=== PATIENT | male | born 1935 | race Hispanic/Latino ===

== ENCOUNTER → 2018-11-04 | Day surgery (SDC) | payer MEDICARE, OTHER ==
[2018-10-24 13:48] LABS: BASOPHILS % 0.3 % (0.0-1.0); EOSINOPHILS # (AUTO) 0.2 (0.0-0.4); EOSINOPHILS % 2.6 % (0.0-6.0); HEMOGLOBIN 12.6 g/dL (14.0-18.0); LYMPHOCYTES # (AUTO) 1.4 (1.0-3.2); LYMPHOCYTES % 21.1 % (18.0-39.1); MEAN CORPUSCULAR HEMOGLOBIN 32.6 pg (28-32); MEAN CORPUSCULAR HGB CONC 34.1 g/dL (31-35); MEAN CORPUSCULAR VOLUME 95.6 fL (81-99); MONOCYTES # (AUTO) 0.5 (0.2-0.8); MONOCYTES % 7.1 % (4.4-11.3); NEUTROPHILS # (AUTO) 4.5 (2.1-6.9); NEUTROPHILS % 68.6 % (38.7-80.0); PLATELET COUNT 173 x10e3/uL (140-360); RED BLOOD COUNT 3.87 x10e6/uL (4.3-5.7); RED CELL DISTRIBUTION WIDTH 12.7 % (11.7-14.4)
[~2018-11-04] MED LIST: ARICEPT5 MG PO; ATENOLOL50 MG PO; ATORVASTATIN CA10 MG PO; CALAN SR180 MG PO; DONEPEZIL PO; FENTANYL CITRATE/PF 100MCG/2 ML INJ ONE; GLIMEPIRIDE2 MG PO; GLUCAGON FOR INJ 1 MG VIAL ONE; HYOSCYAMINE SULFATE 0.5 MG/ML INJ ONE; LEVOCETIRIZINE D5 MG PEG; LEVOTHYROXINE50 MCG PO; LIDOCAINE HCL 2% LOCAL INJ 5 ML SDV VIAL INJ ONE; LOSARTAN POTAS100 MG PO; MEMANTINE PO; METFORMIN HCL500 MG PO; METOCLOPRAMIDE HCL 10 MG/2ML VIAL ONE; OMEPRAZOLE40 MG PO; PROPOFOL IV EMULSION 10 MG/ML 50 ML VIAL ONE; VERAPAMIL ER120 MG; VESICARE5 MG PO
[2018-11-04 14:45] VITALS: BP 142/88
--- NOTE | 2018-11-04 20:50 | Operative Report ---
DATE OF PROCEDURE: 11/04/2018 SURGEON: Clint Madrid MD PROCEDURES: 1. Esophagogastroduodenoscopy with biopsy. 2. Colonoscopy with polypectomy. INDICATIONS FOR EGD: Acid reflux. INDICATIONS FOR COLONOSCOPY: Colorectal cancer screening. MEDICATIONS: The patient was done under MAC, please see anesthesiologist's note. PROCEDURE IN DETAIL: EGD: With the patient in left lateral decubitus position, a flexible fiberoptic Olympus gastroscope was introduced into the esophagus under direct visualization without any difficulty. There was some patchy erythema noted in distal esophagus. The scope was then advanced with ease into the stomach and mucosa overlying the antrum revealed some patchy intense erythema and moderate edema and biopsies were obtained, sent to stain for H pylori. There was a submucosal nodule also noted in the stomach and that was biopsied. Mucosa overlying the body of the stomach was somewhat atrophic and biopsies were obtained to rule out atrophic gastritis. Pylorus was intubated with ease and the scope was advanced all the way to the second portion of the duodenum. The scope was then withdrawn slowly and mucosa overlying the proximal second portion and duodenal bulb appeared to be within normal limits. The scope was then withdrawn back into the stomach and retroflexed and mucosa overlying the fundus and the cardia appeared to be within normal limits. The scope was then straightened out and was subsequently withdrawn. The patient tolerated the procedure well. IMPRESSION: 1. Distal esophagitis, mild. 2. Rule out atrophic gastritis, body, biopsied. 3. Submucosal nodule, antrum, biopsied. PLAN: Follow up histology. Increase omeprazole to 40 mg one p.o. before meals b.i.d. Colonoscopy: The patient was then turned around after adequate lubrication of the anal canal. Flexible fiberoptic Olympus colonoscope was inserted into the rectum with ease and advanced all the way to the cecum. The cecum and the proximal ascending colon were suboptimally prepped, but no obvious obstructing or constricting lesions were noted. Two polyps were snared, three polyps were hot biopsied in the transverse colon, and one polyp was hot biopsied in the descending colon. The sigmoid and rectum grossly appeared to be within normal limits. The scope was then retroflexed into the distal rectum, small internal hemorrhoids were noted, none of which was actively bleeding. The scope was then straightened out and it was subsequently withdrawn. The patient tolerated the procedure well. IMPRESSION: 1. Suboptimal prep. 2. Transverse colon polyps x5, two snared and three hot biopsied. 3. Descending colon polyp, hot biopsied. 4. Internal hemorrhoids, none actively bleeding. PLAN: Follow up histology. Initiate high-fiber, low-fat diet. Initiate high-fiber supplement. Timing of followup colonoscopy pending pathology report. Clint Madrid MD [facility] [place] /[id number] cc: Arcelia Gann MD
--- OUTSIDE RECORDS SUMMARY | 2018-11-06 14:47 | XMS REPORT | Summary of Care ---
Author Author [facility] Outpatient Imaging [facility] Outpatient Imaging [facility] Address Unknown Phone Unavailable Encounter HQ Encntr_alias(FIN) [id number] Date(s): 11/28/17 - 11/28/17 [facility] Outpatient Imaging [facility] [address] [facility] [address] [place], [place] [address]- [phone] Discharge Disposition: Home or Self Care Attending Physician: González Pinto MD Vital Signs No data available for this section Problem List Condition Effective Dates Status Health Status Informant Cancer of Resolved prostate(Confirmed) Diabetes(Confirmed) Resolved Hyperlipidemia(Confi Resolved rmed) Hypertension(Confirm Resolved ed) Allergies, Adverse Reactions, Alerts Substance Reaction Severity Status NKDA Active Medications No data available for this section Results No data available for this section Immunizations Given and Recorded Vaccine Date Status Refusal Reason pneumococcal 23-valent vaccine 03/18/07 Given Not Given Vaccine Date Status Refusal Reason pneumococcal 23-valent vaccine1 10/23/13 Not Given Parent Or Guardian Refuses 1Result Comment: as per patient and family patient recieved pneumo vaccine last year Procedures No data available for this section Social History Social History Type Response Smoking Status Never smoker; Exposure to Tobacco Smoke None; Cigarette Smoking Last 365 Days No; Reg Smoking Cessation Counseling No entered on: 10/23/13 Assessment and Plan No data available for this section
--- OUTSIDE RECORDS SUMMARY | 2018-11-06 14:47 | XMS REPORT | Summary of Care ---
Author Author [facility] Cardiology [facility] Organization [facility] Address Unknown Phone Unavailable Encounter BETHANY Crawford(CORIE) [id number] Date(s): 01/20/18 - 01/20/18 [facility] [address] [facility] [address] [place] [address] [phone] Discharge Disposition: Home or Self Care Attending Physician: Maximiliano Cisneros MD Vital Signs Most recent to 1 oldest [Reference Range]: Height 165.1 cm (01/20/18 12:09 PM) Blood Pressure 120/72 mmHg [90-140/60-90 mmHg] (01/20/18 12:09 PM) Peripheral Pulse 81 bpm Rate [60-100 bpm] (01/20/18 12:09 PM) Weight 77.898 kg (01/20/18 12:09 PM) Body Mass Index 28.58 m2 (01/20/18 12:09 PM) Problem List Condition Effective Dates Status Health Status Informant Cancer of Resolved prostate(Confirmed) Diabetes(Confirmed) Resolved Hyperlipidemia(Confi Resolved rmed) Hypertension(Confirm Resolved ed) Allergies, Adverse Reactions, Alerts Substance Reaction Severity Status NKDA Active Medications aspirin 81 mg tablet, enteric coated 81 mg=1 tab, PO, Daily, # 90 tab, 3 Refill(s) Start Date: 01/20/18 Status: Ordered levocetirizine 5 mg oral tablet 5 mg=1 tab, PO, Bedtime, PRN as needed for allergy symptoms, # 30 tab, 0 Refill( s) Start Date: 01/20/18 Stop Date: 02/19/18 Status: Ordered VESIcare 5 mg oral tablet 5 mg=1 tab, PO, Daily, # 30 tab, 0 Refill(s) Start Date: 01/20/18 Status: Ordered Results No data available for this section [...] Reg Smoking Cessation Counseling No entered on: 01/20/18 Assessment and Plan No data available for this section
--- OUTSIDE RECORDS SUMMARY | 2018-11-06 14:47 | XMS REPORT | Continuity of Care Document ---
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 [facility] DVT Active 10/23/2013 [facility] LEG PAIN Active 10/23/2013 [facility] Diabetes Resolved Problem 10/26/2013 [facility] Cancer of prostate Resolved Problem 08/09/2018 [facility] Diabetes Resolved Problem 08/09/2018 [facility] Hyperlipidemia Resolved Problem 08/09/2018 [facility] Hypertension Resolved Problem 08/09/2018 [facility] AC DVT/EMB PROX LOW EXT Active [facility] Medications Medication Details Route Status Patient Instructions Ordering Provider Order Date Source levocetirizine 5 mg oral tablet 5 mg=1 tab, PO, Bedtime, PRN as needed for allergy symptoms, # 30 tab, 0 Refill(s) Active 01/20/2018 [facility] Aspirin 81 MG Enteric Coated Tablet 81 mg=1 tab, PO, Daily, # 90 tab, 3 Refill(s) Active 01/20/2018 [facility] solifenacin succinate 5 MG Oral Tablet [VESICARE] 5 mg=1 tab, PO, Daily, # 30 tab, 0 Refill(s) Active 01/20/2018 [facility] rivaroxaban 15 MG Oral Tablet [Xarelto] 15 mg=1 tab, PO, BID, # 42 tab, 0 Refill(s) Active 10/24/2013 [facility] Solifenacin Route: PO, Drug form: TAB, Daily, Dosing Weight 75, kg, Start date: 10/24/13 9:00:00, Duration: 30 day, Stop date: 11/22/13 9:00:00 No Longer Active 10/24/2013 [facility] Omeprazole 20 mg, Route: PO, Drug form: DRC, Daily, Dosing Weight 75, kg, Start date: 10/24/13 9:00:00, Duration: 30 day, Stop date: 11/22/13 9:00:00 No Longer Active 10/24/2013 [facility] glimepiride 1 mg, 1 tab, Route: PO, Drug form: TAB, Daily, Dosing Weight 75, kg, Start date: 10/24/13 9:00:00, Duration: 30 day, Stop date: 11/22/13 9:00:00Notes: (Same as: Amaryl) Inactive 10/24/2013 [facility] Losartan 100 mg, 2 tab, Route: PO, Drug form: TAB, Daily, Dosing Weight 75, kg, Start date: 10/24/13 9:00:00, Duration: 30 day, Stop date: 11/22/13 9:00:00Notes: (Same as: Cozaar) Inactive 10/24/2013 [facility] Protonix 40 mg, Route: PO, Daily, Dosing Weight 75, kg, Start date: 10/24/13 9:00:00, Duration: 30 day, Stop date: 11/22/13 9:00:00 No Longer Active 10/24/2013 [facility] Lovenox 80 mg, 0.8 mL, Route: SUB-Q, Drug form: INJ, [id number], Start date: 10/23/13 22:00:00, Duration: 30 day, Stop date: 11/22/13 10:00:00Notes: Nurse to ensure documentation of patient education per antic oagulation policy. (Same as: Lovenox) No Longer Active 10/24/2013 [facility] atorvastatin 10 mg, 1 tab, Route: PO, Drug form: TAB, Bedtime, Dosing Weight 75, kg, Start date: 10/23/13 21:00:00, Duration: 30 day, Stop date: 11/21/13 21:00:00Notes: (Same As: Lipitor) No Longer Active 10/24/2013 [facility] Xarelto 15 mg, Route: PO, Q12H, Dosing Weight 75, kg, Start date: 10/23/13 21:00:00, Duration: 30 day, Stop date: 11/22/13 9:00:00 Inactive 10/24/2013 [facility] Detrol LA 4 mg, 1 cap, Route: PO, Drug form: CAP, Bedtime, Start date: 10/23/13 21:00:00, Duration: 30 day, Stop date: 11/21/13 21:00:00Notes: Do Not Crush. (Same As: Detrol LA) No Longer Active 10/24/2013 [facility] Lovenox 80 mg, 0.8 mL, Route: SUB-Q, Drug form: INJ, [id number], Dosing Weight 75, kg, Start date: 10/23/13 17:00:00, Duration: 30 day, Stop date: 11/22/13 5:00:00Notes: Nurse to ensure documentation of patient education per anticoagulation policy. (Same as: Lovenox) Inactive 10/23/2013 [facility] Verapamil 180 mg, 1 tab, Route: PO, Drug form: ERTAB, QPM, Dosing Weight 75, kg, Start date: 10/23/13 17:00:00, Duration: 30 day, Stop date: 11/21/13 17:00:00Notes: Do not crush or chew. (Same As: Calan SR, Isoptin SR) "Avoid grapefruit and grapefruit juice" No Longer Active 10/23/2013 [facility] Metformin 100 mg, Route: PO, Drug form: TAB, BID, Dosing Weight 75, kg, Start date: 10/23/13 17:00:00, Duration: 30 day, Stop date: 11/22/13 9:00:00 Inactive 10/23/2013 [facility] Zinacef 1.5 gm, Route: IVPB, PRE OP, Dosing Weight 75, kg, Start date: 10/23/13 17:00:00, Duration: 1 day, Stop date: 10/24/13 16:59:00Notes: (Same As: Kefurox, Zinacef) Inactive 10/23/2013 [facility] Protonix 40 mg, 1 tab, Route: PO, Drug form: ECTAB, Before Dinner, Start date: 10/23/13 16:30:00, Duration: 30 day, Stop date: 11/21/13 16:30:00Notes: Tablet should not be chewed or crushed. (Same as: Protonix) No Longer Active 10/23/2013 [facility] Phenergan 25 mg, 1 mL, Route: IM, Drug form: INJ, Q4H, Dosing Weight 75, kg, PRN as needed for nausea/vomiting, Start date: 10/23/13 15:04:00, Duration: 30 day, Stop date: 11/22/13 15:03:00Notes: Do not give IV push. (Same as: Phenergan) No Longer Active 10/23/2013 [facility] Zofran 4 mg, 2 mL, Route: IV, Drug form: INJ, Q4H, Dosing Weight 75, kg, PRN as needed for nausea/vomiting, Start date: 10/23/13 15:04:00, Duration: 30 day, Stop date: 11/22/13 15:03:00Notes: (Same as: Zofran) No Longer Active 10/23/2013 [facility] Glucagon 1 mg, Route: IM, Drug form: PDR/INJ, PRN, Dosing Weight 75, kg, PRN Blood Glucose Results, Start date: 10/23/13 15:03:00, Duration: 30 day, Stop date: 11/22/13 15:02:00 No Longer Active 10/23/2013 [facility] Dextrose 50% Syringe 25 gm, 50 mL, Route: IVP, Drug Form: INJ, Dosing Weight 75, kg, PRN, PRN Blood Glucose Results, Start date: 10/23/13 15:03:00, Duration: 30 day, Stop date: 11/22/13 15:02:00 No Longer Active 10/23/2013 [facility] Hydralazine 10 mg, 0.5 mL, Route: IV, Drug form: INJ, Q4H, Dosing Weight 75, kg, PRN Elevated BP, Start date: 10/23/13 15:03:00, Duration: 30 day, Stop date: 11/22/13 15:02:00, SBP > 165Notes: (Same as: Apresoline) Push over 5 minutes No Longer Active 10/23/2013 [facility] Insulin, Aspart, Human 5 unit, 0.05 mL, Route: SUB-Q, Drug form: SOLN, TID-Before Meals, Dosing Weight 75, kg, PRN Blood Glucose Results, Start date: 10/23/13 15:03:00, Duration: 30 day, Stop date: 11/22/13 15:02:00Notes: Roll in palms of hands gently; Do not shake vigorously. (Same as: NovoLOG) "single patient use only" Stable for 28 days at room temperature. Expires in days from Date No Longer Active 10/23/2013 [facility] Lovenox 70 mg, 0.7 mL, Route: SUB-Q, Drug form: INJ, [id number], Dosing Weight 68.182, kg, Start date: 10/23/13 15:00:00, Duration: 30 day, Stop date: 11/22/13 3:00:00Notes: Nurse to ensure documentation of patient education per anticoagulation policy. (Same as: Lovenox) Inactive 10/23/2013 [facility] solifenacin succinate 5 MG Oral Tablet [VESICARE] See Instructions, 1 tab, 0 Refill(s)Special Instructions: 1 tab Active 10/23/2013 [facility] Verapamil 180 mg, PO, Daily, 0 Refill(s) Active 10/23/2013 [facility] atorvastatin 10 mg oral tablet 10 mg=1 tab, PO, Bedtime, # 30 tab, 0 Refill(s) Active 10/23/2013 [facility] Metformin 100 mg, PO, BID, 0 Refill(s) Active 10/23/2013 [facility] Lovenox 70 mg, 0.7 mL, Route: SUB-Q, Drug form: INJ, ONCE, Dosing Weight 68.182, kg, Priority: STAT, Start date: 10/23/13 10:16:00, Stop date: 10/23/13 10:16:00Notes: Nurse to ensure documentation of patient education per anticoagulation policy. (Same as: Lovenox) Inactive 10/23/2013 [facility] Saline Flush 0.9% 5 mL, Route: IVP, Drug Form: INJ, Dosing Weight 68.182, kg, Q8H, PRN Line Flush, Start date: 10/23/13 9:09:00, Duration: 30 day, Stop date: 11/22/13 9:08:00, Administer at least once every 8 hoursSpe cial Instructions: Administer at least once every 8 hoursNotes: (Same as: BD Posiflush) No Longer Active 10/23/2013 [facility] losartan 100 mg oral tablet 100 mg=1 tab, PO, Daily, # 30 tab, 0 Refill(s) Active 10/22/2013 [facility] glimepiride 1 mg oral tablet 1 mg=1 tab, PO, Daily, # 30 tab, 0 Refill(s) Active 10/22/2013 [facility] omeprazole 20 mg oral delayed release capsule 20 mg=1 cap, PO, Daily, # 30 cap, 0 Refill(s) Active 10/22/2013 [facility] Allergies, Adverse Reactions, Alerts Substance Category Reaction Severity Reaction type Status Date Reported Comments Source Immunizations Immunization Date Given Site Status Last Updated Comments Source pneumococcal 23-valent vaccine<sup>1</sup> 10/24/2013 Not Given [facility] pneumococcal 23-valent vaccine 03/18/2007 Right deltoid completed [place] [facility] Results Order Name Results Value Reference Range Date Interpretation Comments Source Spine cervical wo contrast MRI Spine cervical wo contrast MRI Clinical Indication: M54.12 - Radiculopathy, cervical region - M54.12 - Radiculopathy, cervical region, Pain neck, both shoulders and arms, neck pain radiating to both shoulders and arms Comparison: None TECHNIQUE: Multiplanar T1, T2, and STIR weighted MRI of the cervical spine is performed. FINDINGS: ALIGNMENT AND GENERAL ASSESSMENT: There is normal alignment of the cervical spine. No aggressive bone marrow abnormality is present. The prevertebral soft tissues, atlanto-dental interspace and craniocervical junction are within normal limits. The facet joint alignment, spinolaminar and spinous process alignments are unremarkable. The posterior paraspinal soft tissues are unremarkable. The visualized brainstem region is unremarkable. The cervical spinal cord is normal in size and signal. DISC SPACES: C2-C3: The disc is normal. There is no significant central canal or foraminal stenosis. The facet joints are unremarkable. C3-C4: The disc is normal. Disc osteophyte complex results in mild bilateral neural foraminal narrowing with mild central canal effacement. The facet joints are unremarkable. C4-C5: The disc is normal. There is no significant central canal or foraminal stenosis. The facet joints are unremarkable. C5-C6: Disc desiccation with severe height loss and a small posterior circumferential disc bulge. Mild to moderate right and moderate left neural foraminal narrowing with mild to moderate central canal effacement. The facet joints are unremarkable. C6-C7: Disc desiccation with mild height loss and a small posterior circumferential disc bulge. Disc osteophyte complex results in mild left neural foraminal narrowing. The facet joints are unremarkable. C7-T1: The disc is normal. There is no significant central canal or foraminal stenosis. The facet joints are unremarkable. OTHER: The remaining visualized soft tissue and osseous structures are grossly unremarkable. IMPRESSION: -- Limited exam secondary to patient motion artifact on multiple sequences. Multilevel degenerative changes result most prominently in: 1. C5/C6 mild to moderate right/moderate left neural foraminal narrowing, mild to moderate central canal effacement 2. Mild neural foraminal narrowing at C3/C4 and C6/C7 SL: DARON 05/26/2018 - - Read by: Lexi Macdonald MD Dictated Date/time: 05/27/18 16:06 Electronically Signed by: Lexi Macdonald MD 05/27/18 16:11 FINAL REPORT [facility] Brain wo contrast MRI Brain wo contrast MRI Patient Name: GAMAL PHILLIPS : 1935; Age: 82 years y/o Male MR: [id number] Study: Brain wo contrast MRI 11/28/2017 3:51 PM CDT INDICATIONS: G30.9 - Alzheimer's disease - G30.9 - Alzheimer's disease Comparison: 02/05/2016 TECHNIQUE: Multiplanar MRI of the brain is performed on a 1.5 Snehal magnet. Contrast: None. FINDINGS: BRAIN PARENCHYMA: Age appropriate involutionary changes with mild punctate small vessel ischemic changes.2. The brain parenchyma otherwise has normal signal with normal elliott-white junction, sulci, and gyri. There is no mass effect or midline shift. There is no extra-axial fluid collection or intraparenchymal hemorrhage. The corpus callosum appears normal. There is no diffusion weighted imaging or ADC map abnormality to suggest acute/subacute ischemia. There is no magnetic susceptibility to suggest recent or remote intracranial hemorrhage. CEREBELLOPONTINE REGIONS AND SKULL BASE: The cerebellopontine angles appear unremarkable. The skull base, craniocervical junction, and brainstem are normal. The optic chiasm is normal. The sellar and pineal regions are unremarkable. The inferior tip of the cerebellum is above the foramen magnum (line between the opisthion to basion) which is considered normal.. VENTRICLES: The lateral ventricles, third and fourth ventricles appear unremarkable. The basilar cisterns are normal. VESSELS: The venous sinuses are grossly unremarkable. The expected intracranial flow voids are present. ORBITS, VISUALIZED PARANASAL SINUSES AND MASTOIDS: 14x11 polyp or retention cyst left maxillary sinus The visualized orbits and paranasal sinuses are otherwise unremarkable. Slight opacification of the right mastoid air cells suggesting mastoiditis in the appropriate clinical setting. IMPRESSION: 1. Age appropriate involutionary changes with mild punctate small vessel ischemic changes. 2. 14x11 polyp or retention cyst left maxillary sinus, similar. SL: AMELIE- 11/28/2017 - - Read by: Johnny Mansfield DO Dictated Date/time: 11/28/17 17:51 Electronically Signed by: Johnny Mansfield DO 11/28/17 18:51 [facility] Chest 2 views DX Chest 2 views DX PA and lateral chest: The aortic arch is calcified. The cardiomediastinal silhouette, pulmonary vasculature and sindhu are otherwise within normal limits. Mild bilateral pleural thickening is noted. The lungs and pleural spaces are clear. There are no acute osseous abnormalities. There is no significant change compared to 07/31/2008. IMPRESSION: No acute radiographic abnormalities in the chest. DLAWRENCE- 09/28/2016 - - Read by: Rafael Avilez MD Dictated Date/time: 09/28/16 12:51 Electronically Signed by: Rafael Avilez MD 09/28/16 12:52 FINAL REPORT [facility] Brain wo contrast MRI Brain wo contrast MRI MRI BRAIN WITHOUT CONTRAST HISTORY: Unspecified abnormalities of gait and mobility, cerebral atherosclerosis, senile degeneration of brain; forgetfulness COMPARISON: None available. TECHNIQUE: Multiecho multiplanar images of the brain were done without and with contrast injection. FINDINGS: There is no acute infarct or restricted diffusion. Moderate diffuse cerebral atrophy and mild chronic small vessel ischemic change. The ventricles, sulci, and cisterns are normal. There is no other signal abnormality in the elliott or the white matter. No mass, hemorrhage, or extra-axial fluid collection is identified. The pituitary gland is normal in size. The cerebellar tonsils are normal in position. Normal T2 flow voids are present. Small mucous retention cyst in the left maxillary sinus. IMPRESSION: 1. No acute ischemia or intracranial hemorrhage. 2. Moderate diffuse cerebral atrophy and mild chronic small vessel ischemic change. SL: BREE 02/05/2016 - - Read by: Esau Lerma MD Dictated Date/time: 02/05/16 17:23 Electronically Signed by: Esau Lerma MD 02/05/16 17:31 FINAL REPORT [facility] Brain wo contrast MRA Brain wo contrast MRA MRA BRAIN HISTORY: I67.2 - Cerebral atherosclerosis, R26.9 - Unspecified abnormalities of gait and mobility; COMPARISON: MRI brain dated 02/05/2016 TECHNIQUE: Magnetic resonance angiography time of flight of the [place] was performed without contrast. 3D reconstructed images were created. The petrous, cavernous, and supraclinoid portions of the internal carotid arteries are normal in contour and caliber. The anterior, middle, and posterior cerebral arteries are normal in shape. The basilar artery is intact. There is no stenosis or branch occlusion. No aneurysm is identified. IMPRESSION: Normal [place]. No intracranial aneurysm or branch occlusion. SL: BREE 02/05/2016 - - Read by: Esau Lerma MD Dictated Date/time: 02/05/16 17:31 Electronically Signed by: Esau Lerma MD 02/05/16 17:33 FINAL REPORT [facility] CHEM PANEL Phosphorus 3.4 mg/dL 2.5 - 4.5 10/24/2013 [facility] CHEM PANEL Magnesium Lvl 1.3 mg/dL 1.8 - 2.4 10/24/2013 [facility] CHEM PANEL eGFR 86 mL/min/1.73m2 10/24/2013 1Result Comment: The eGFR is calculated using the CKD-EPI formula. In most young, healthy individuals the eGFR will be >90 mL/min/1.73m2. The eGFR declines with age. An eGFR of 60-89 may be normal in some populations, particularly the elderly, for whom the CKD-EPI formula has not been extensively validated. Use of the eGFR is not recommended in the following populations: Individuals with unstable creatinine concentrations, including patients and those with serious co-morbid conditions. Patients with extremes in muscle mass or diet. The data above are obtained from the National Kidney Disease Education Program (NKDEP) which additionally recommends that when the eGFR is used in patients with extremes of body mass index for purposes of drug dosing, the eGFR should be multiplied by the estimated BMI. [facility] CHEM PANEL BUN 15 mg/dL 7 - 22 10/24/2013 [facility] CHEM PANEL Creatinine Lvl 0.8 mg/dL 0.5 - 1.4 10/24/2013 [facility] CHEM PANEL Potassium Lvl 3.8 meq/L 3.5 - 5.1 10/24/2013 [facility] CHEM PANEL CO2 25 meq/L 24 - 32 10/24/2013 [facility] CHEM PANEL Chloride Lvl 102 meq/L 95 - 109 10/24/2013 [facility] CHEM PANEL AGAP 14.8 meq/L 10.0 - 20.0 10/24/2013 [facility] CHEM PANEL Calcium Lvl 9.1 mg/dL 8.5 - 10.5 10/24/2013 [facility] CHEM PANEL Sodium Lvl 138 meq/L 135 - 145 10/24/2013 [facility] CHEM PANEL Glucose Lvl 111 mg/dL 70 - 99 10/24/2013 3Interpretive Data: Adult reference range values reflect the clinical guidelines of the [place] [employer]. [facility] HEMATOLOGY WBC 5.9 K/CMM 3.7 - 10.4 10/24/2013 [facility] HEMATOLOGY RBC 3.42 M/CMM 4.70 - 6.10 10/24/2013 [facility] Hgb 10.4 g/dL 14.0 - 18.0 10/24/2013 [facility] Hct 31.3 % 42.0 - 54.0 10/24/2013 [facility] MCH 30.4 pg 27.0 - 31.0 10/24/2013 [facility] MCHC 33.2 g/dL 32.0 - 36.0 10/24/2013 [facility] RDW 13.6 % 11.5 - 14.5 10/24/2013 [facility] MCV 91.4 fL 80.0 - 94.0 10/24/2013 [facility] Platelet 164 K/CMM 133 - 450 10/24/2013 [facility] MPV 7.9 fL 7.4 - 10.4 10/24/2013 [facility] Basophils 0.4 % 0.0 - 1.0 10/24/2013 [facility] Segs-Bands # 4.4 K/CMM 1.5 - 8.1 10/24/2013 [facility] HEMATOLOGY Lymphocytes # 0.9 K/CMM 1.0 - 5.5 10/24/2013 [facility] HEMATOLOGY Monocytes 5.6 % 2.0 - 12.0 10/24/2013 [facility] HEMATOLOGY Eosinophils 2.7 % 0.0 - 4.0 10/24/2013 [facility] HEMATOLOGY Segs 75.3 % 45.0 - 75.0 10/24/2013 [facility] HEMATOLOGY Lymphocytes 16.0 % 20.0 - 40.0 10/24/2013 [facility] HEMATOLOGY Monocytes # 0.3 K/CMM 0.0 - 0.8 10/24/2013 [facility] HEMATOLOGY Eosinophils # 0.2 K/CMM 0.0 - 0.5 10/24/2013 [facility] HEMATOLOGY Basophils # 0.0 K/CMM 0.0 - 0.2 10/24/2013 [facility] LIPIDS LDL (Calculated) 78 mg/dL <=99 mg/dL 10/24/2013 [facility] LIPIDS VLDL 18 10/24/2013 [facility] LIPIDS HDL 56 mg/dL >=61 mg/dL 10/24/2013 [facility] LIPIDS CHD Risk 2.71 4.00 - 7.30 10/24/2013 [facility] LIPIDS Trig 89 mg/dL <=149 mg/dL 10/24/2013 [facility] LIPIDS Chol 152 mg/dL <=199 mg/dL 10/24/2013 [facility] SPECIAL CHEMISTRY Hgb A1C 6.0 % <=5.6 % 10/24/2013 [facility] THYROID PANEL T4 Free 0.97 ng/dL 0.76 - 1.46 10/24/2013 [facility] THYROID PANEL TSH 4.990 uIU/mL 0.360 - 3.740 10/24/2013 [facility] BLOOD BANK RESULTS Antibody Scrn Negative (10/23/13 5:00 PM) 10/23/2013 [facility] BLOOD BANK RESULTS ABO/Rh B POS 10/23/2013 [facility] CARDIAC ENZYMES CK MB Index null 0.0 - 2.5 10/23/2013 [facility] CARDIAC ENZYMES BNP 99 pg/mL <=100 pg/mL 10/23/2013 5Interpretive Data: Elevated results are in line with increasing severity of congestive heart failure. Minor elevations between 100 and 300 may be seen with Myocardial Ischemia, Sodium retaining drugs, and compensated/treated heart failure. [facility] CARDIAC ENZYMES Troponin-I null 0.00 - 0.40 10/23/2013 [facility] CARDIAC ENZYMES Total CK 59 unit/L 12 - 191 10/23/2013 [facility] CARDIAC ENZYMES CK MB null 0.5 - 3.6 10/23/2013 [facility] CHEM PANEL Lipase Lvl 161 unit/L 73 - 393 10/23/2013 [facility] CHEM PANEL eGFR 86 mL/min/1.73m2 10/23/2013 2Result Comment: The eGFR is calculated using the CKD-EPI formula. In most young, healthy individuals the eGFR will be >90 mL/min/1.73m2. The eGFR declines with age. An eGFR of 60-89 may be normal in some populations, particularly the elderly, for whom the CKD-EPI formula has not been extensively validated. Use of the eGFR is not recommended in the following populations: Individuals with unstable creatinine concentrations, including patients and those with serious co-morbid conditions. Patients with extremes in muscle mass or diet. The data above are obtained from the National Kidney Disease Education Program (NKDEP) which additionally recommends that when the eGFR is used in patients with extremes of body mass index for purposes of drug dosing, the eGFR should be multiplied by the estimated BMI. [facility] CHEM PANEL A/G Ratio 0.8 0.7 - 1.6 10/23/2013 [facility] CHEM PANEL B/C Ratio 20 6 - 25 10/23/2013 [facility] CHEM PANEL Globulin 3.8 g/dL 2.0 - 4.0 10/23/2013 [facility] CHEM PANEL Potassium Lvl 4.2 meq/L 3.5 - 5.1 10/23/2013 [facility] CHEM PANEL Sodium Lvl 141 meq/L 135 - 145 10/23/2013 [facility] CHEM PANEL Chloride Lvl 107 meq/L 95 - 109 10/23/2013 [facility] CHEM PANEL Bili Total 0.4 mg/dL 0.2 - 1.3 10/23/2013 [facility] CHEM PANEL AGAP 9.2 meq/L 10.0 - 20.0 10/23/2013 [facility] CHEM PANEL AST 12 unit/L 0 - 37 10/23/2013 [facility] CHEM PANEL Alk Phos 96 unit/L 39 - 136 10/23/2013 [facility] CHEM PANEL ALT 14 unit/L 0 - 65 10/23/2013 [facility] CHEM PANEL Albumin Lvl 3.1 g/dL 3.5 - 5.0 10/23/2013 [facility] CHEM PANEL Total Protein 6.9 g/dL 6.4 - 8.4 10/23/2013 [facility] CHEM PANEL Calcium Lvl 9.4 mg/dL 8.5 - 10.5 10/23/2013 [facility] CHEM PANEL CO2 29 meq/L 24 - 32 10/23/2013 [facility] CHEM PANEL Creatinine Lvl 0.8 mg/dL 0.5 - 1.4 10/23/2013 [facility] CHEM PANEL Glucose Lvl 114 mg/dL 70 - 99 10/23/2013 4Interpretive Data: Adult reference range values reflect the clinical guidelines of the [place] [employer]. [facility] CHEM PANEL BUN 16 mg/dL 7 - 22 10/23/2013 [facility] HEMATOLOGY Segs-Bands # 5.0 K/CMM 1.5 - 8.1 10/23/2013 [facility] HEMATOLOGY Segs 77.7 % 45.0 - 75.0 10/23/2013 [facility] Lymphocytes 14.0 % 20.0 - 40.0 10/23/2013 [facility] Monocytes 6.4 % 2.0 - 12.0 10/23/2013 [facility] HEMATOLOGY Basophils 0.4 % 0.0 - 1.0 10/23/2013 [facility] Eosinophils 1.5 % 0.0 - 4.0 10/23/2013 [facility] Basophils # 0.0 K/CMM 0.0 - 0.2 10/23/2013 [facility] HEMATOLOGY Eosinophils # 0.1 K/CMM 0.0 - 0.5 10/23/2013 [facility] Monocytes # 0.4 K/CMM 0.0 - 0.8 10/23/2013 [facility] Lymphocytes # 0.9 K/CMM 1.0 - 5.5 10/23/2013 [facility] INR 1.08 0.85 - 1.17 10/23/2013 6Interpretive Data: RECOMMENDED RANGES FOR PROTIME INR: 2.0-3.0 for most medical and surgical thromboembolic states. 2.5-3.5 for artificial heart valves and recurrent embolism. INR SHOULD BE USED ONLY FOR PATIENTS ON STABLE ANTICOAGULANT THERAPY. [facility] PT 13.9 s 12.0 - 14.7 10/23/2013 [facility] PTT 31.9 s 22.9 - 35.8 10/23/2013 7Interpretive Data: Heparin Therapeutic Range: 57 - 92 Seconds [facility] HEMATOLOGY MPV 7.2 fL 7.4 - 10.4 10/23/2013 [facility] HEMATOLOGY Platelet 175 K/CMM 133 - 450 10/23/2013 [facility] HEMATOLOGY WBC 6.5 K/CMM 3.7 - 10.4 10/23/2013 [facility] HEMATOLOGY MCH 31.1 pg 27.0 - 31.0 10/23/2013 [facility] HEMATOLOGY RDW 13.5 % 11.5 - 14.5 10/23/2013 [facility] HEMATOLOGY MCHC 33.8 g/dL 32.0 - 36.0 10/23/2013 [facility] HEMATOLOGY MCV 92.0 fL 80.0 - 94.0 10/23/2013 [facility] HEMATOLOGY Hct 33.4 % 42.0 - 54.0 10/23/2013 [facility] HEMATOLOGY RBC 3.63 M/CMM 4.70 - 6.10 10/23/2013 [facility] HEMATOLOGY Hgb 11.3 g/dL 14.0 - 18.0 10/23/2013 [facility] Vital Signs Vital Sign Value Date Comments Source Weight 77.898 01/20/[facility] Heart Rate 81 01/20/2018 [facility] Systolic (mm Hg) 120 01/20/2018 [facility] Diastolic (mm Hg) 72 01/20/2018 [facility] Height 165.1 cm 01/20/2018 [facility] BMI Calculated 28.58 01/20/2018 [facility] Temperature Oral (F) 98.2 F 10/24/2013 [facility] Respitory Rate 18 10/24/2013 [facility] Heart Rate 64 10/24/2013 [facility] Systolic (mm Hg) 132 10/24/2013 [facility] Diastolic (mm Hg) 76 10/24/2013 [facility] Temperature Oral (F) 98 F 10/24/2013 [facility] Heart Rate 59 10/24/2013 [facility] Diastolic (mm Hg) 76 10/24/2013 [facility] Systolic (mm Hg) 132 10/24/2013 [facility] Respitory Rate 18 10/24/2013 [facility] Temperature Oral (F) 97.6 F 10/24/2013 [facility] Systolic (mm Hg) 131 10/24/2013 [facility] Respitory Rate 18 10/24/2013 [facility] Heart Rate 66 10/24/2013 [facility] Diastolic (mm Hg) 79 10/24/2013 [facility] Weight 75 10/23/2013 [facility] BMI Calculated 32.29 10/23/2013 [facility] Height 152.4 cm 10/23/2013 [facility] Encounters Location Location Details Encounter Type Encounter Number Reason For Visit Attending Provider ADM Date DC Date Status Source [facility] Inpatient [id number] Zohaib Arellano 10/23/2013 10/24/2013 [facility] Outpatient Imaging [facility] [id number] González Pinto 02/05/2016 02/06/2016 [facility] Outpatient Imaging [facility] [id number] Jet Clarke 09/28/2016 09/29/2016 [facility] Outpatient Imaging [facility] [id number] González Pinto 11/28/2017 11/29/2017 [facility] Outpatient [id number] MAXIMILIANO CISNEROS 01/20/2018 [facility] Cardiology [facility] Outpatient [id number] Maximiliano Cisneros 01/20/2018 01/21/2018 [facility] Procedures Procedure Code Date Perfomer Comments Source
--- OUTSIDE RECORDS SUMMARY | 2018-11-06 14:48 | XMS REPORT | Summary of Care ---
Author Organization Unknown Address Unknown Phone Unavailable Encounter [facility] Yvette(CORIE) [id number] Date(s): 10/23/13 - 10/24/[address] Discharge Disposition: Home Physician Attending: Zohaib Arellano MD Physician Admitting: Zohaib Arellano MD Reason for Visit DVT Vital Signs 1 2 3 Most recent to oldest [Reference Range]: 152.4 cm (10/23/13 1:21 PM) Height 98.2 DegF (10/24/13 4:49 PM) 98 DegF (10/24/13 11:52 AM) 97.6 DegF (10/24/13 8:33 AM) Temperature Oral [96.4-99.1 DegF] 132 mmHg (10/24/13 4:49 PM) 132 mmHg (10/24/13 11:52 AM) 131 mmHg (10/24/13 8:33 AM) Systolic Blood Pressure [90-140 mmHg] 76 mmHg (10/24/13 4:49 PM) 76 mmHg (10/24/13 11:52 AM) 79 mmHg (10/24/13 8:33 AM) Diastolic Blood Pressure [60-90 mmHg] 18 BRMIN (10/24/13 4:49 PM) 18 BRMIN (10/24/13 11:52 AM) 18 BRMIN (10/24/13 8:33 AM) Respiratory Rate [14-20 BRMIN] 64 bpm (10/24/13 4:49 PM) 59 bpm *LOW* (10/24/13 11:52 AM) 66 bpm (10/24/13 8:33 AM) Peripheral Pulse Rate [60-100 bpm] 75 kg (10/23/13 1:21 PM) Weight 32.29 m2 (10/23/13 1:21 PM) Body Mass Index Problem List Condition Effective Dates Status Health Status Informant Cancer of Resolved prostate(Confirmed) Diabetes(Confirmed) Resolved Hyperlipidemia(Confi Resolved rmed) Hypertension(Confirm Resolved ed) Allergies, Adverse Reactions, Alerts Substance Reaction Severity Status NKDA Active Medications atorvastatin 10 mg, 1 tab, Route: PO, Drug form: TAB, Bedtime, Dosing Weight 75, kg, Start da te: 10/23/13 21:00:00, Duration: 30 day, Stop date: 11/21/13 21:00:00 Notes: (Same As: Lipitor) Start Date: 10/23/13 Stop Date: 10/24/13 Status: Discontinued atorvastatin 10 mg oral tablet 10 mg=1 tab, PO, Bedtime, # 30 tab, 0 Refill(s) Start Date: 10/23/13 Status: Ordered Detrol LA 4 mg, 1 cap, Route: PO, Drug form: CAP, Bedtime, Start date: 10/23/13 21:00:00, Duration: 30 day, Stop date: 11/21/13 21:00:00 Notes: Do Not Crush. (Same As: Detrol LA) Start Date: 10/23/13 Stop Date: 10/24/13 Status: Discontinued Dextrose 50% Syringe 25 gm, 50 mL, Route: IVP, Drug Form: INJ, Dosing Weight 75, kg, PRN, PRN Blood G lucose Results, Start date: 10/23/13 15:03:00, Duration: 30 day, Stop date: 10/31 15:02:00 Start Date: 10/23/13 Stop Date: 10/24/13 Status: Discontinued Dextrose 50% Syringe 12.5 gm, 25 mL, Route: IVP, Drug Form: INJ, Dosing Weight 75, kg, PRN, PRN Blood Glucose Results, Start date: 10/23/13 15:03:00, Duration: 30 day, Stop date: 15:02:00 Start Date: 10/23/13 Stop Date: 10/24/13 Status: Discontinued glimepiride 1 mg, 1 tab, Route: PO, Drug form: TAB, Daily, Dosing Weight 75, kg, Start date: 10/24/13 9:00:00, Duration: 30 day, Stop date: 11/22/13 9:00:00 Notes: (Same as: Amaryl) Start Date: 10/24/13 Stop Date: 10/24/13 Status: Discontinued glimepiride 1 mg oral tablet 1 mg=1 tab, PO, Daily, # 30 tab, 0 Refill(s) Start Date: 10/22/13 Status: Ordered glucagon 1 mg, Route: IM, Drug form: PDR/INJ, PRN, Dosing Weight 75, kg, PRN Blood Glucos e Results, Start date: 10/23/13 15:03:00, Duration: 30 day, Stop date: 11/22/13 15:02:00 Start Date: 10/23/13 Stop Date: 10/24/13 Status: Discontinued hydrALAZINE 10 mg, 0.5 mL, Route: IV, Drug form: INJ, Q4H, Dosing Weight 75, kg, PRN Elevate d BP, Start date: 10/23/13 15:03:00, Duration: 30 day, Stop date: 11/22/13 15:02 :00, SBP > 165 Notes: (Same as: Apresoline)Push over 5 minutes Start Date: 10/23/13 Stop Date: 10/24/13 Status: Discontinued insulin aspart 5 unit, 0.05 mL, Route: SUB-Q, Drug form: SOLN, TID-Before Meals, Dosing Weight 75, kg, PRN Blood Glucose Results, Start date: 10/23/13 15:03:00, Duration: 30 d ay, Stop date: 11/22/13 15:02:00 Notes: Roll in palms of hands gently; Do not shake vigorously. (Same as: Zachary Burton)"single patient use only" Stable for 28 days at room temperature.Expires in _ ____ days from Date Start Date: 10/23/13 Stop Date: 10/24/13 Status: Discontinued insulin aspart 4 unit, 0.04 mL, Route: SUB-Q, Drug form: SOLN, TID-Before Meals, Dosing Weight 75, kg, PRN Blood Glucose Results, Start date: 10/23/13 15:03:00, Duration: 30 d ay, Stop date: 11/22/13 15:02:00 Notes: Roll in palms of hands gently; Do not shake vigorously. (Same as: NovoLO G)"single patient use only" Stable for 28 days at room temperature.Expires in _ ____ days from Date Start Date: 10/23/13 Stop Date: 10/24/13 Status: Discontinued insulin aspart 1 unit, 0.01 mL, Route: SUB-Q, Drug form: SOLN, TID-Before Meals, Dosing Weight 75, kg, PRN Blood Glucose Results, Start date: 10/23/13 15:03:00, Duration: 30 d ay, Stop date: 11/22/13 15:02:00 Notes: Roll in palms of hands gently; Do not shake vigorously. (Same as: NovoLO G)"single patient use only" Stable for 28 days at room temperature.Expires in _ ____ days from Date Start Date: 10/23/13 Stop Date: 10/24/13 Status: Discontinued insulin aspart 3 unit, 0.03 mL, Route: SUB-Q, Drug form: SOLN, TID-Before Meals, Dosing Weight 75, kg, PRN Blood Glucose Results, Start date: 10/23/13 15:03:00, Duration: 30 d ay, Stop date: 11/22/13 15:02:00 Notes: Roll in palms of hands gently; Do not shake vigorously. (Same as: NovoLO G)"single patient use only" Stable for 28 days at room temperature.Expires in _ ____ days from Date Start Date: 10/23/13 Stop Date: 10/24/13 Status: Discontinued insulin aspart 2 unit, 0.02 mL, Route: SUB-Q, Drug form: SOLN, TID-Before Meals, Dosing Weight 75, kg, PRN Blood Glucose Results, Start date: 10/23/13 15:03:00, Duration: 30 d ay, Stop date: 11/22/13 15:02:00 Notes: Roll in palms of hands gently; Do not shake vigorously. (Same as: NovoLO G)"single patient use only" Stable for 28 days at room temperature.Expires in _ ____ days from Date Start Date: 10/23/13 Stop Date: 10/24/13 Status: Discontinued losartan 100 mg, 2 tab, Route: PO, Drug form: TAB, Daily, Dosing Weight 75, kg, Start jan e: 10/24/13 9:00:00, Duration: 30 day, Stop date: 11/22/13 9:00:00 Notes: (Same as: Romain) Start Date: 10/24/13 Stop Date: 10/24/13 Status: Discontinued losartan 100 mg oral tablet 100 mg=1 tab, PO, Daily, # 30 tab, 0 Refill(s) Start Date: 10/22/13 Status: Ordered Lovenox 80 mg, 0.8 mL, Route: SUB-Q, Drug form: INJ, [id number], Dosing Weight 75, kg, Sta rt date: 10/23/13 17:00:00, Duration: 30 day, Stop date: 11/22/13 5:00:00 Notes: Nurse to ensure documentation of patient education per anticoagulation po licy. (Same as: Lovenox) Start Date: 10/23/13 Stop Date: 10/23/13 Status: Discontinued Lovenox 70 mg, 0.7 mL, Route: SUB-Q, Drug form: INJ, ONCE, Dosing Weight 68.182, kg, Perla ority: STAT, Start date: 10/23/13 10:16:00, Stop date: 10/23/13 10:16:00 Notes: Nurse to ensure documentation of patient education per anticoagulation po licy. (Same as: Lovenox) Start Date: 10/23/13 Stop Date: 10/23/13 Status: Completed Lovenox 70 mg, 0.7 mL, Route: SUB-Q, Drug form: INJ, [id number], Dosing Weight 68.182, kg, Start date: 10/23/13 15:00:00, Duration: 30 day, Stop date: 11/22/13 3:00:00 Notes: Nurse to ensure documentation of patient education per anticoagulation po licy. (Same as: Lovenox) Start Date: 10/23/13 Stop Date: 10/23/13 Status: Canceled Lovenox 80 mg, 0.8 mL, Route: SUB-Q, Drug form: INJ, [id number], Start date: 10/23/13 22:0 0:00, Duration: 30 day, Stop date: 11/22/13 10:00:00 Notes: Nurse to ensure documentation of patient education per anticoagulation po licy. (Same as: Lovenox) Start Date: 10/23/13 Stop Date: 10/24/13 Status: Discontinued metFORMIN 100 mg, Route: PO, Drug form: TAB, BID, Dosing Weight 75, kg, Start date: 17:00:00, Duration: 30 day, Stop date: 11/22/13 9:00:00 Start Date: 10/23/13 Stop Date: 10/23/13 Status: Discontinued metFORMIN 100 mg, PO, BID, 0 Refill(s) Start Date: 10/23/13 Status: Ordered omeprazole 20 mg, Route: PO, Drug form: DRC, Daily, Dosing Weight 75, kg, Start date: 10/24 9:00:00, Duration: 30 day, Stop date: 11/22/13 9:00:00 Start Date: 10/24/13 Stop Date: 10/23/13 Status: Deleted omeprazole 20 mg oral delayed release capsule 20 mg=1 cap, PO, Daily, # 30 cap, 0 Refill(s) Start Date: 10/22/13 Stop Date: 11/21/13 Status: Ordered Phenergan 25 mg, 1 mL, Route: IM, Drug form: INJ, Q4H, Dosing Weight 75, kg, PRN as needed for nausea/vomiting, Start date: 10/23/13 15:04:00, Duration: 30 day, Stop date: 11/22/13 15:03:00 Notes: Do not give IV push. (Same as: Phenergan) Start Date: 10/23/13 Stop Date: 10/24/13 Status: Discontinued Protonix 40 mg, 1 tab, Route: PO, Drug form: ECTAB, Before Dinner, Start date: 10/23/13 1 6:30:00, Duration: 30 day, Stop date: 11/21/13 16:30:00 Notes: Tablet should not be chewed or crushed.(Same as: Protonix) Start Date: 10/23/13 Stop Date: 10/24/13 Status: Discontinued Protonix 40 mg, Route: PO, Daily, Dosing Weight 75, kg, Start date: 10/24/13 9:00:00, Dur ation: 30 day, Stop date: 11/22/13 9:00:00 Start Date: 10/24/13 Stop Date: 10/23/13 Status: Deleted Saline Flush 0.9% 5 mL, Route: IVP, Drug Form: INJ, Dosing Weight 68.182, kg, Q8H, PRN Line Flush, Start date: 10/23/13 9:09:00, Duration: 30 day, Stop date: 11/22/13 9:08:00, Ad auto striper at least once every 8 hours Special Instructions: Administer at least once every 8 hours Notes: (Same as: BD Posiflush) Start Date: 10/23/13 Stop Date: 10/24/13 Status: Discontinued solifenacin Route: PO, Drug form: TAB, Daily, Dosing Weight 75, kg, Start date: 10/24/13 9:0 0:00, Duration: 30 day, Stop date: 11/22/13 9:00:00 Start Date: 10/24/13 Stop Date: 10/23/13 Status: Deleted verapamil 180 mg, 1 tab, Route: PO, Drug form: ERTAB, QPM, Dosing Weight 75, kg, Start jan e: 10/23/13 17:00:00, Duration: 30 day, Stop date: 11/21/13 17:00:00 Notes: Do not crush or chew.(Same As: Calan SR, Isoptin SR) "Avoid grapefruit a nd grapefruit juice" Start Date: 10/23/13 Stop Date: 10/24/13 Status: Discontinued verapamil 180 mg, PO, Daily, 0 Refill(s) Start Date: 10/23/13 Status: Ordered VESIcare 5 mg oral tablet See Instructions, 1 tab, 0 Refill(s) Special Instructions: 1 tab Start Date: 10/23/13 Status: Ordered Xarelto 15 mg, Route: PO, Q12H, Dosing Weight 75, kg, Start date: 10/23/13 21:00:00, Dur ation: 30 day, Stop date: 11/22/13 9:00:00 Start Date: 10/23/13 Stop Date: 10/23/13 Status: Canceled Xarelto 15 mg tablet 15 mg=1 tab, PO, BID, # 42 tab, 0 Refill(s) Start Date: 10/24/13 Status: Ordered Zinacef + Sodium Chloride 0.9% IV 100 mL 1.5 gm, Route: IVPB, PRE OP, Dosing Weight 75, kg, Start date: 10/23/13 17:00:00 , Duration: 1 day, Stop date: 10/24/13 16:59:00 Notes: (Same As: Kefurox, Zinacef) Start Date: 10/23/13 Stop Date: 10/23/13 Status: Discontinued Zofran 4 mg, 2 mL, Route: IV, Drug form: INJ, Q4H, Dosing Weight 75, kg, PRN as needed for nausea/vomiting, Start date: 10/23/13 15:04:00, Duration: 30 day, Stop date: 11/22/13 15:03:00 Notes: (Same as: Zofran) Start Date: 10/23/13 Stop Date: 10/24/13 Status: Discontinued Results BLOOD BANK RESULTS Most recent to 1 2 oldest [Reference Range]: ABO/Rh B POS *Unknown* (10/23/13 5:00 PM) Antibody Scrn Negative (10/23/13 5:00 PM) ELECTROLYTES Most recent to 1 2 oldest [Reference Range]: Sodium Lvl [135-145 138 mEq/L 141 mEq/L mEq/L] (10/24/13 5:05 AM) (10/23/13 9:20 AM) Potassium Lvl 3.8 mEq/L 4.2 mEq/L [3.5-5.1 mEq/L] (10/24/13 5:05 AM) (10/23/13 9:20 AM) Chloride Lvl [95-109 102 mEq/L 107 mEq/L mEq/L] (10/24/13 5:05 AM) (10/23/13 9:20 AM) CO2 [24-32 mEq/L] 25 mEq/L 29 mEq/L (10/24/13 5:05 AM) (10/23/13 9:20 AM) AGAP [10.0-20.0 14.8 mEq/L 9.2 mEq/L mEq/L] (10/24/13 5:05 AM) *LOW* (10/23/13 9:20 AM) CHEM PANEL Most recent to 1 2 oldest [Reference Range]: Creatinine Lvl 0.8 mg/dL 0.8 mg/dL [0.5-1.4 mg/dL] (10/24/13 5:05 AM) (10/23/13 9:20 AM) eGFR 86 mL/min/1.73m2 1 86 mL/min/1.73m2 2 *NA* *NA* (10/24/13 5:05 AM) (10/23/13 9:20 AM) BUN [7-22 mg/dL] 15 mg/dL 16 mg/dL (10/24/13 5:05 AM) (10/23/13 9:20 AM) B/C Ratio [6-25] 20 (10/23/13 9:20 AM) Glucose Lvl [70-99 111 mg/dL 3 114 mg/dL 4 mg/dL] *HI* *HI* (10/24/13 5:05 AM) (10/23/13 9:20 AM) Total Protein 6.9 g/dL [6.4-8.4 g/dL] (10/23/13 9:20 AM) Albumin Lvl [3.5-5.0 3.1 g/dL g/dL] *LOW* (10/23/13 9:20 AM) Globulin [2.0-4.0 3.8 g/dL g/dL] (10/23/13 9:20 AM) A/G Ratio [0.7-1.6] 0.8 (10/23/13 9:20 AM) Calcium Lvl 9.1 mg/dL 9.4 mg/dL [8.5-10.5 mg/dL] (10/24/13 5:05 AM) (10/23/13 9:20 AM) Phosphorus [2.5-4.5 3.4 mg/dL mg/dL] (10/24/13 5:05 AM) Magnesium Lvl 1.3 mg/dL [1.8-2.4 mg/dL] *LOW* (10/24/13 5:05 AM) ALT [0-65 unit/L] 14 unit/L (10/23/13 9:20 AM) AST [0-37 unit/L] 12 unit/L (10/23/13 9:20 AM) Alk Phos [39-136 96 unit/L unit/L] (10/23/13 9:20 AM) Bili Total [0.2-1.3 0.4 mg/dL mg/dL] (10/23/13 9:20 AM) Lipase Lvl [73-393 161 unit/L unit/L] (10/23/13 9:20 AM) 1Result Comment: The eGFR is calculated using [...] from the National Kid[employer] Disease Education Program ( NKDEP) which additionally recommends that when the eGFR is used in patients with extremes of body mass index for purposes of drug dosing, the eGFR should be mul tiplied by the estimated BMI. 2Result Comment: The eGFR is calculated using [...] from the National Kidney Disease Education Program ( NKDEP) which additionally recommends that when the eGFR is used in patients with extremes of body mass index for purposes of drug dosing, the eGFR should be mul tiplied by the estimated BMI. 3Interpretive Data: Adult reference range values reflect the clinical guidelines of the [place] [employer]. 4Interpretive Data: Adult reference range values reflect the clinical guidelines of the [place] [employer]. CARDIAC ENZYMES Most recent to 1 2 oldest [Reference Range]: Total CK [12-191 59 unit/L unit/L] (10/23/13 9:20 AM) CK MB [0.5-3.6 <0.5 ng/mL ng/mL] (10/23/13 9:20 AM) CK MB Index <0.8 [0.0-2.5] (10/23/13 9:20 AM) Troponin-I <0.02 ng/mL [0.00-0.40 ng/mL] (10/23/13 9:20 AM) BNP [<=100 pg/mL] 99 pg/mL 5 (10/23/13 9:20 AM) 5Interpretive Data: Elevated results are in line with increasing severity of congestive heart failure. Minor elevations between 100 and 300 may be seen with Myocardial Ischemia, Sodium retaining drugs, and compensated/treated heart failure. LIPIDS Most recent to 1 2 oldest [Reference Range]: CHD Risk [4.00-7.30] 2.71 *LOW* (10/24/13 5:05 AM) Chol [<=199 mg/dL] 152 mg/dL (10/24/13 5:05 AM) Trig [<=149 mg/dL] 89 mg/dL (10/24/13 5:05 AM) HDL [>=61 mg/dL] 56 mg/dL *LOW* (10/24/13 5:05 AM) LDL (Calculated) 78 mg/dL [<=99 mg/dL] (10/24/13 5:05 AM) VLDL 18 *NA* (10/24/13 5:05 AM) SPECIAL CHEMISTRY Most recent to 1 2 oldest [Reference Range]: Hgb A1C [<=5.6 %] 6.0 % *HI* (10/24/13 5:05 AM) THYROID PANEL Most recent to 1 2 oldest [Reference Range]: T4 Free [0.76-1.46 0.97 ng/dL ng/dL] (10/24/13 5:05 AM) TSH [0.360-3.740 4.990 uIU/mL uIU/mL] *HI* (10/24/13 5:05 AM) HEMATOLOGY Most recent to 1 2 oldest [Reference Range]: WBC [3.7-10.4 K/CMM] 5.9 K/CMM 6.5 K/CMM (10/24/13 5:05 AM) (10/23/13 9:20 AM) RBC [4.70-6.10 3.42 M/CMM 3.63 M/CMM M/CMM] *LOW* *LOW* (10/24/13 5:05 AM) (10/23/13 9:20 AM) Hgb [14.0-18.0 g/dL] 10.4 g/dL 11.3 g/dL *LOW* *LOW* (10/24/13 5:05 AM) (10/23/13 9:20 AM) Hct [42.0-54.0 %] 31.3 % 33.4 % *LOW* *LOW* (10/24/13 5:05 AM) (10/23/13 9:20 AM) MCV [80.0-94.0 fL] 91.4 fL 92.0 fL (10/24/13 5:05 AM) (10/23/13 9:20 AM) MCH [27.0-31.0 pg] 30.4 pg 31.1 pg (10/24/13 5:05 AM) *HI* (10/23/13 9:20 AM) MCHC [32.0-36.0 33.2 g/dL 33.8 g/dL g/dL] (10/24/13 5:05 AM) (10/23/13 9:20 AM) RDW [11.5-14.5 %] 13.6 % 13.5 % (10/24/13 5:05 AM) (10/23/13 9:20 AM) Platelet [133-450 164 K/CMM 175 K/CMM K/CMM] (10/24/13 5:05 AM) (10/23/13 9:20 AM) MPV [7.4-10.4 fL] 7.9 fL 7.2 fL (10/24/13 5:05 AM) *LOW* (10/23/13 9:20 AM) Segs [45.0-75.0 %] 75.3 % 77.7 % *HI* *HI* (10/24/13 5:05 AM) (10/23/13 9:20 AM) Lymphocytes 16.0 % 14.0 % [20.0-40.0 %] *LOW* *LOW* (10/24/13 5:05 AM) (10/23/13 9:20 AM) Monocytes [2.0-12.0 5.6 % 6.4 % %] (10/24/13 5:05 AM) (10/23/13 9:20 AM) Eosinophils [0.0-4.0 2.7 % 1.5 % %] (10/24/13 5:05 AM) (10/23/13 9:20 AM) Basophils [0.0-1.0 0.4 % 0.4 % %] (10/24/13 5:05 AM) (10/23/13 9:20 AM) Segs-Bands # 4.4 K/CMM 5.0 K/CMM [1.5-8.1 K/CMM] (10/24/13 5:05 AM) (10/23/13 9:20 AM) Lymphocytes # 0.9 K/CMM 0.9 K/CMM [1.0-5.5 K/CMM] *LOW* *LOW* (10/24/13 5:05 AM) (10/23/13 9:20 AM) Monocytes # [0.0-0.8 0.3 K/CMM 0.4 K/CMM K/CMM] (10/24/13 5:05 AM) (10/23/13 9:20 AM) Eosinophils # 0.2 K/CMM 0.1 K/CMM [0.0-0.5 K/CMM] (10/24/13 5:05 AM) (10/23/13 9:20 AM) Basophils # [0.0-0.2 0.0 K/CMM 0.0 K/CMM K/CMM] (10/24/13 5:05 AM) (10/23/13 9:20 AM) PT [12.0-14.7 13.9 seconds seconds] (10/23/13 9:20 AM) INR [0.85-1.17] 1.08 6 (10/23/13 9:20 AM) PTT [22.9-35.8 31.9 seconds 7 seconds] (10/23/13 9:20 AM) 6Interpretive Data: RECOMMENDED RANGES FOR PROTIME INR: 2.0-3.0 for most medical and surgical thromboembolic states. 2.5-3.5 for artificial heart valves and recurrent embolism. INR SHOULD BE USED ONLY FOR PATIENTS ON STABLE ANTICOAGULANT THERAPY. 7Interpretive Data: Heparin Therapeutic Range: 57 - 92 Seconds Medications Administered During Your Visit No data available for this section Immunizations Vaccine Date Refusal Reason pneumococcal 23-valent vaccine1 10/23/13 Parent Or Guardian Refuses pneumococcal 23-valent vaccine 03/18/07 1Result Comment: as per patient and family patient recieved pneumo vaccine last year Social History Social History Type Response Smoking Status Never smoker, Exposure to Tobacco Smoke None, Cigarette Smoking Last 365 Days No, Reg Smoking Cessation Counseling No
--- OUTSIDE RECORDS SUMMARY | 2018-11-06 14:48 | XMS REPORT | Summary of Care ---
Author Author [facility] Outpatient Imaging [facility] Address Unknown Phone Unavailable Encounter HQ Jdr_[email or web address](FIN) [id number] Date(s): 09/28/16 - 09/28/16 [facility] Outpatient [facility] [address] [place], [place] [phone]- [phone] Discharge Disposition: Home or Self Care Attending Physician: Jet Clarke MD Vital Signs No data available for [...] Days No; Reg Smoking Cessation Counseling No Assessment and Plan No data available for this section
--- OUTSIDE RECORDS SUMMARY | 2018-11-06 14:48 | XMS REPORT | Summary of Care ---
Author Author [facility] Outpatient Imaging [facility] Outpatient Imaging [facility] Address Unknown Phone Unavailable Encounter [email or web address]_[email or web address](FIN) [phone] Date(s): 02/05/16 - 02/05/16 [facility] Outpatient Imaging [facility] [address] [place], [place] [address]- [phone] Discharge Disposition: Home or Self Care Attending [...]
== END | disposition home or self-care (01) ==
LOC: OR 07:15 → EDSEX 10:30
PROVIDERS: ATTEND Internal Medicine Gastroenterology
DX: Z12.11 Encounter for screening for malignant neoplasm of colon (principal); D12.3 Benign neoplasm of transverse colon; K29.50 Unspecified chronic gastritis without bleeding; K31.89 Other diseases of stomach and duodenum; K21.0 Gastro-esophageal reflux disease with esophagitis; K64.8 Other hemorrhoids; I10 Essential (primary) hypertension; F03.90 Unspecified dementia, unspecified severity, without behavioral disturbance, psychotic disturbance, mood disturbance, and anxiety; E11.9 Type 2 diabetes mellitus without complications; E03.9 Hypothyroidism, unspecified; Z01.810 Encounter for preprocedural cardiovascular examination; Z01.812 Encounter for preprocedural laboratory examination; Z79.84 Long term (current) use of oral hypoglycemic drugs
CPT/HCPCS: 36415 ×2; 43239; 45380; 45385; 82948; 85025; 93005; J1610; J1980; J2001; J2704; J2765